=== PATIENT | male | born 1985 | race Two or more races ===

== ENCOUNTER → 2025-01-23 | Outpatient (CLI) | payer OTHER, BC, SELFPAY ==
--- NOTE | 2025-01-23 14:30 | XR_ITS ---
Examination: Thyroid sonography complete Technique: Grayscale sonographic images thyroid lobes, color flow analysis Exam date and time: January 23, 2025 1436 hrs. Indications: Difficulty swallowing beginning 6 months ago Findings: Right thyroid 4.8 cm midpole 4 x 3 x 3 mm nodule Left thyroid 5.2 cm no thyroid nodules Impression: Small mid pole right thyroid nodule 4 x 3 x 3 mm
== END | disposition home or self-care (01) ==
PROVIDERS: PCP Nurse Practitioner Family; Referring Provider Nurse Practitioner Family; Visit Provider Nurse Practitioner Family
DX: E04.1 Nontoxic single thyroid nodule (principal)
CPT/HCPCS: 76536

== ENCOUNTER → 2025-06-30 | Outpatient (CLI) | payer OTHER, SELFPAY ==
--- NOTE | 2025-06-30 10:30 | XR_ITS ---
Examination: CT chest with intravenous contrast 2-D sagittal and coronal reconstructions Exam date and time: June 30, 2025 1104 hours Comparison October 14, 2024 INDICATIONS: 2 mm pulmonary nodule right upper lobe on CT chest October 14, 2024, chronic coughing for months CTDI:vol (mGy) 20.6 DLP: (mGycm) 815 Technique: Multiple axial sections of the thorax have been obtained. Sections have been obtained, 3 mm slice thickness. Mediastinal and lung density settings have been obtained. Intravenous contrast administered, 60 cc Isovue-370. 2-D sagittal, coronal images obtained. Low dose protocols were performed. One or more of the following dose reduction techniques were used; automated exposure control, adjustment of the mA and/or KV according to patient size, use of iterative reconstruction technique. Findings: No thoracic aortic aneurysmal dilatation No pulmonary artery filling defects No paratracheal tracheobronchial or bronchopulmonary adenopathy. Stable 2 mm pulmonary nodule right upper lobe No new pulmonary nodules No pneumonia or pulmonary edema Fatty infiltration throughout the liver No gallstones Spleen not enlarged IMPRESSION: Stable 2 mm pulmonary nodule right upper lobe, no new pulmonary nodules
== END | disposition home or self-care (01) ==
DX: R91.1 Solitary pulmonary nodule (principal); Z77.22 Contact with and (suspected) exposure to environmental tobacco smoke (acute) (chronic)
CPT/HCPCS: 71260; A4649; Q9967